=== PATIENT | male | born 1970 | race Caucasian/White ===

== ENCOUNTER 2019-09-24 20:46 | Emergency (ER) | payer OTHER ==
[~2019-09-24] VITALS: Ht 182.8 cm; Wt 100.0 kg
[~2019-09-24 20:46] MED LIST: ARIPIPRAZOLE10 MG PO; COGENTIN1 MG PO; EFFEXOR XR150 M1 PO; LEVOTHYROXIN0.175 MG PO; PROTONIX40 MG PO; REGLAN10 MG PO; SYNTHROID0.15 MG PO; VENLAFAXINE HY150 M2 PO
[2019-09-24] MEDS ORDERED: ATORVASTATIN CA80 M1 PO (20:50)
== END 2019-09-24 21:34 | disposition short-term general hospital (02) ==
LOC: ED 20:46
DX: I21.09 ST elevation (STEMI) myocardial infarction involving other coronary artery of anterior wall (principal); I25.10 Atherosclerotic heart disease of native coronary artery without angina pectoris; F41.9 Anxiety disorder, unspecified; F32.9 Major depressive disorder, single episode, unspecified; F17.200 Nicotine dependence, unspecified, uncomplicated; Z79.899 Other long term (current) drug therapy

== ENCOUNTER → 2019-11-11 | Outpatient (CLI) | payer OTHER ==
[~2019-11-11] MED LIST changes: +ATORVASTATIN CA80 M1 PO
== END ==
LOC: CARD 00:16
DX: I25.10 Atherosclerotic heart disease of native coronary artery without angina pectoris (principal); R73.03 Prediabetes

== ENCOUNTER 2020-02-01 23:28 | Inpatient (IN) | payer OTHER ==
[~2020-02-01] VITALS: Ht 182.9 cm; Wt 94.9 kg
[2020-02-01 23:29] VITALS: BP 115/68
[2020-02-01 23:45] LABS: BASO # 0.1 10*3/uL (0.0-0.1); BASO % 0.7 % (0.0-1.0); EOS # 0.1 10*3/uL (0.0-0.4); EOS % 1.5 % (1.0-4.0); HEMATOCRIT 41.4 % (42.0-52.0); LYMPH # 2.6 10*3/uL (1.3-4.4); LYMPH % 31.5 % (27.0-41.0); MEAN CORPUSCULAR HGB 29.6 pg (27.0-31.0); MEAN CORPUSCULAR HGB CONC 32.9 g/dl (33.0-37.0); MEAN PLATELET VOLUME 10.3 fl (9.6-12.3); MONO # 0.5 10*3/uL (0.1-1.0); MONO % 6.2 % (3.0-9.0); NEUT # 4.9 10*3/uL (2.3-7.9); PLATELET COUNT AUTOMATED 254 10*3/uL (130-400); RED CELL DISTRI WIDTH 12.4 % (0-14.5); WHITE BLOOD COUNT 8.1 10*3/uL (4.8-10.8)
[2020-02-01 23:57] LABS: ACT PARTIAL THROMBO TIME 30.5 SECONDS (20.0-32.1); INTERNATIONAL NORM RATIO 1.2 (2.0-3.5)
[2020-02-02 00:02] LABS: ALBUMIN 3.6 gm/dl (3.1-4.5); ALKALINE PHOSPHATASE 108 U/L (45-117); BUN 14 mg/dl (7-24); CHLORIDE 108 mmol/L (98-107); CREATININE 1.03 mg/dL (0.70-1.30); POTASSIUM 3.2 mmol/L (3.5-5.1); SGOT/AST 12 IU/L (3-35); SGPT/ALT 21 U/L (12-78); SODIUM 139 mmol/L (136-145); TOTAL PROTEIN 6.8 gm/dL (6.4-8.2)
[2020-02-02 00:03] LABS: TROPONIN I 0.019 ng/ml (<0.045)
[2020-02-02 01:58] VITALS: BP 114/84
[2020-02-02 02:41] VITALS: BP 110/85
[2020-02-02 03:54] VITALS: BP 116/76
[2020-02-02 04:20] VITALS: BP 124/87
[2020-02-02 05:55] LABS: ALBUMIN 3.5 gm/dl (3.1-4.5); ALKALINE PHOSPHATASE 100 U/L (45-117); BUN 13 mg/dl (7-24); CHLORIDE 110 mmol/L (98-107); CHOLESTEROL 95 mg/dL (<200); CREATININE 0.98 mg/dL (0.70-1.30); FREE T4 1.33 ng/dl (0.76-1.46); HDL CHOLESTEROL 35 mg/dl (40-60); LDL CHOLESTEROL 46 mg/dL (9-159); POTASSIUM 3.8 mmol/L (3.5-5.1); SGOT/AST 12 IU/L (3-35); SGPT/ALT 20 U/L (12-78); SODIUM 141 mmol/L (136-145); TOTAL PROTEIN 6.5 gm/dL (6.4-8.2); TRIGLYCERIDES 69 mg/dl (<150); VLDL CHOLESTEROL 14 mg/dL (6-40)
[2020-02-02 06:16] LABS: BASO # 0.1 10*3/uL (0.0-0.1); BASO % 0.8 % (0.0-1.0); EOS # 0.1 10*3/uL (0.0-0.4); EOS % 1.5 % (1.0-4.0); HEMATOCRIT 41.4 % (42.0-52.0); LYMPH # 2.7 10*3/uL (1.3-4.4); LYMPH % 37.9 % (27.0-41.0); MEAN CORPUSCULAR HGB 29.3 pg (27.0-31.0); MEAN CORPUSCULAR HGB CONC 32.6 g/dl (33.0-37.0); MEAN PLATELET VOLUME 10.7 fl (9.6-12.3); MONO # 0.5 10*3/uL (0.1-1.0); MONO % 7.6 % (3.0-9.0); NEUT # 3.7 10*3/uL (2.3-7.9); NEUT % 52.1 % (47.0-73.0); PLATELET COUNT AUTOMATED 255 10*3/uL (130-400); RED CELL DISTRI WIDTH 12.4 % (0-14.5); WHITE BLOOD COUNT 7.1 10*3/uL (4.8-10.8)
[2020-02-02 06:59] LABS: VITAMIN D, 25-HYDROXY 47.8 ng/mL (30-100)
[2020-02-02] MEDS ORDERED: ELIQUIS5 M1 PO (09:07)
[2020-02-02] MEDS ORDERED: CARVEDILOL3.125 MG PO (09:07)
[2020-02-02] MEDS ORDERED: PRASUGREL HCL10 MG PO (09:08)
[2020-02-02 12:00] VITALS: BP 121/81
[2020-02-02 16:00] VITALS: BP 119/80
== END 2020-02-02 16:06 | disposition home or self-care (01) | DRG 190 ==
LOC: ED 23:28 → EDHOLD 02-02 02:49 → 4E 02-02 04:06
PROVIDERS: Emergency Medicine; Internal Medicine; ADMIT Internal Medicine
DX: I21.19 ST elevation (STEMI) myocardial infarction involving other coronary artery of inferior wall (principal); I25.10 Atherosclerotic heart disease of native coronary artery without angina pectoris; F32.9 Major depressive disorder, single episode, unspecified; E89.0 Postprocedural hypothyroidism; R55 Syncope and collapse; I25.2 Old myocardial infarction; Z95.5 Presence of coronary angioplasty implant and graft; Z79.01 Long term (current) use of anticoagulants; Z79.899 Other long term (current) drug therapy

== ENCOUNTER 2020-02-21 00:20 | Inpatient (IN) | payer OTHER ==
[2020-02-21] VITALS (9 sets, daily range): BP systolic 101–134; BP diastolic 54–87
[~2020-02-21] VITALS: Ht 182.9 cm; Wt 93.5 kg
[~2020-02-21 00:20] MED LIST changes: +CARVEDILOL3.125 MG PO; +ELIQUIS5 M1 PO; +PRASUGREL HCL10 MG PO
[2020-02-21 00:36] LABS: BASO # 0.1 10*3/uL (0.0-0.1); BASO % 0.8 % (0.0-1.0); EOS # 0.1 10*3/uL (0.0-0.4); EOS % 1.5 % (1.0-4.0); HEMATOCRIT 44.1 % (42.0-52.0); LYMPH # 2.4 10*3/uL (1.3-4.4); LYMPH % 26.7 % (27.0-41.0); MEAN CELL VOLUME 90.7 fl (80.0-94.0); MEAN CORPUSCULAR HGB 29.4 pg (27.0-31.0); MEAN CORPUSCULAR HGB CONC 32.4 g/dl (33.0-37.0); MEAN PLATELET VOLUME 9.7 fl (9.6-12.3); MONO # 0.6 10*3/uL (0.1-1.0); MONO % 6.5 % (3.0-9.0); NEUT # 5.7 10*3/uL (2.3-7.9); NEUT % 64.3 % (47.0-73.0); PLATELET COUNT AUTOMATED 289 10*3/uL (130-400); RED BLOOD COUNT 4.86 10*6/uL (4.50-5.90); RED CELL DISTRI WIDTH 12.6 % (0-14.5); WHITE BLOOD COUNT 8.9 10*3/uL (4.8-10.8)
[2020-02-21 00:50] LABS: ACT PARTIAL THROMBO TIME 31.3 SECONDS (20.0-32.1); INTERNATIONAL NORM RATIO 1.1 (2.0-3.5)
[2020-02-21 00:54] LABS: ALBUMIN 3.8 gm/dl (3.1-4.5); ALKALINE PHOSPHATASE 111 U/L (45-117); BUN 18 mg/dl (7-24); CHLORIDE 110 mmol/L (98-107); POTASSIUM 3.7 mmol/L (3.5-5.1); SGOT/AST 14 IU/L (3-35); SGPT/ALT 23 U/L (12-78); SODIUM 140 mmol/L (136-145); TOTAL PROTEIN 7.2 gm/dL (6.4-8.2); TROPONIN I 0.025 ng/ml (<0.045)
--- NOTE | 2020-02-21 02:25 | NUR ---
A 49, admitted to 5E, under the services of ENIO Hanley MD with a diagnosis of CHEST PAIN. Chief complaint is SOB, "HOT SWEATS". Patient arrived via stretcher from ER. Monitor applied. Initial assessment completed. Vital signs taken and recorded. ENIO HANLEY MD notified of admission to the unit. Orders received. See assessment for past medical history, medications and allergies. Patient and/or family oriented to unit. [address] visitation policy reviewed. Clothing/patient valuable form completed. NIXON CHAO
--- NOTE | 2020-02-21 03:10 | NUR ---
CALLED FOR NEW ADMISSION ORDERS.
[2020-02-21] MEDS ORDERED: LEVOTHYROXINE175 MCG PO (03:16)
--- NOTE | 2020-02-21 03:24 | NUR ---
ANSWERING SERVICE NOTIFIED OF NEW CONSULT.
[2020-02-21 06:52] LABS: BUN 19 mg/dl (7-24); CHLORIDE 112 mmol/L (98-107); CREATININE 0.79 mg/dL (0.70-1.30); POTASSIUM 3.9 mmol/L (3.5-5.1); SODIUM 141 mmol/L (136-145)
--- NOTE | 2020-02-21 08:26 | NUR ---
PHYSICAL THERAPY Screen received, pt admitted from home with chest pain w history of [place]. Please consult PT if pts functional status declines from baseline. Thank you. Colt Lorenzo SPT Gina Ray PT
--- NOTE | 2020-02-21 12:00 | NUR ---
NOTIFIED [facility] OF NEED FOR LIFE [facility]ST FOR PATIENT [phone]
--- NOTE | 2020-02-21 16:03 | NUR ---
Nursing screen received and chart reviewed. Patient admitted for chest pain with a history of IN. If patient has a decline in ADLs, transfers, or functional mobility, please send OT orders. Thank you. Batool Moyer, OTR/L
--- NOTE | 2020-02-21 17:46 | NUR ---
NURSE TO NURSE GIVEN TO [facility], PT NEEDS TO BE AT HOSPITAL BY 0730 FOR CATH WITH AT 0900.
--- NOTE | 2020-02-21 18:40 | NUR ---
LIFE VEST STILL NOT AVAILABLE TRIED TO CALL [facility] AGAIN WITH NO ANSWER
--- NOTE | 2020-02-21 20:00 | NUR ---
RESTING IN BED; VOICES NO C/O AT THIS TIME. CALL LIGHT WITHIN REACH.
--- NOTE | 2020-02-21 21:45 | NUR ---
CALLED [facility] AT [facility] AT [phone]. NO ANSWER.
[2020-02-22] VITALS: BP 103/79
--- NOTE | 2020-02-22 04:00 | NUR ---
RESTING IN BED WITH EYES CLOSED; CALL LIGHT WITHIN REACH.
--- NOTE | 2020-02-22 05:00 | NUR ---
BATHED WITH ASSISTANCE OF
--- NOTE | 2020-02-22 05:30 | NUR ---
EXPLAINED TO PATIENT THAT I COULD NOT GET HIS MEDICATIONS FOR HIM DUE TO PHARMACY BEING CLOSED. PT. VERBALIZED UNDERSTANDING.
--- NOTE | 2020-02-22 05:33 | NUR ---
[facility] [employer] NEVER RETURNED ANY OF OUR PHONE CALLS.
--- NOTE | 2020-02-22 06:06 | NUR ---
LEFT VIA [facility]. STABLE.
--- NOTE | 2020-02-22 06:26 | NUR ---
ATTEMPTED TO CALL [facility] [employer] [facility]; NO ANSWER.
--- NOTE | 2020-02-22 06:30 | NUR ---
CALLED [facility] AT AND SPOKE TO ANABELA PERTAINING TO PATIENT LEAVING TO GO TO [facility] THIS MORNING FOR A HEART CATHERIZATION. ANABELA STATED THAT THEY RECEIVED THE ORDER FOR THE LIFE VEST. LEFT OUR PHONE NUMBER IN CASE ANYONE FROM [facility] NEEDS TO CALL HERE FOR MORE INFORMATION & GAVE HER [facility]S MAIN # AND # FOR INSIDE SALES ADVISOR.
[2020-02-22 07:19] LABS: ALBUMIN 3.6 gm/dl (3.1-4.5); ALKALINE PHOSPHATASE 93 U/L (45-117); BUN 17 mg/dl (7-24); CHLORIDE 109 mmol/L (98-107); CREATININE 0.88 mg/dL (0.70-1.30); POTASSIUM 3.5 mmol/L (3.5-5.1); SGOT/AST 12 IU/L (3-35); SGPT/ALT 21 U/L (12-78); SODIUM 137 mmol/L (136-145); TOTAL PROTEIN 6.8 gm/dL (6.4-8.2)
[2020-02-22] MEDS ORDERED: COREG6.25 MG PO (11:40)
[2020-02-22] MEDS ORDERED: LISINOPRIL2.5 MG PO (11:40)
== END 2020-02-22 06:30 | disposition other institution (70) | DRG 198 ==
LOC: ED 00:20 → 5E 01:27 → EDHOLD 01:27 → 5E 01:43
PROVIDERS: Emergency Medicine; Internal Medicine; ADMIT Internal Medicine
DX: I25.9 Chronic ischemic heart disease, unspecified (principal); I25.10 Atherosclerotic heart disease of native coronary artery without angina pectoris; R73.9 Hyperglycemia, unspecified; E87.8 Other disorders of electrolyte and fluid balance, not elsewhere classified; F12.10 Cannabis abuse, uncomplicated; E89.0 Postprocedural hypothyroidism; R06.02 Shortness of breath; F32.9 Major depressive disorder, single episode, unspecified; E78.5 Hyperlipidemia, unspecified; I44.4 Left anterior fascicular block; I34.0 Nonrheumatic mitral (valve) insufficiency; I25.5 Ischemic cardiomyopathy; R61 Generalized hyperhidrosis; F17.219 Nicotine dependence, cigarettes, with unspecified nicotine-induced disorders; I25.2 Old myocardial infarction; Z95.5 Presence of coronary angioplasty implant and graft; Z82.49 Family history of ischemic heart disease and other diseases of the circulatory system; Z79.02 Long term (current) use of antithrombotics/antiplatelets

== ENCOUNTER → 2020-04-11 | Outpatient (CLI) | payer OTHER ==
[~2020-04-11] MED LIST changes: +COREG6.25 MG PO; +LEVOTHYROXINE175 MCG PO; +LISINOPRIL2.5 MG PO
== END | disposition home or self-care (01) ==
LOC: CARD 14:48
PROVIDERS: ATTEND Internal Medicine Cardiovascular Disease
DX: I25.5 Ischemic cardiomyopathy (principal)

== ENCOUNTER 2021-08-22 18:48 | Emergency (ER) | payer OTHER ==
[~2021-08-22] VITALS: Wt 108.9 kg
[2021-08-22 20:11] LABS: BASO # 0.1 10*3/uL (0.0-0.1); BASO % 0.5 % (0.0-1.0); EOS # 0.2 10*3/uL (0.0-0.4); EOS % 1.2 % (1.0-4.0); LYMPH # 1.5 10*3/uL (1.3-4.4); MEAN CELL VOLUME 94.6 fl (80.0-94.0); MEAN CORPUSCULAR HGB 31.2 pg (27.0-31.0); MEAN PLATELET VOLUME 9.8 fl (9.6-12.3); MONO # 0.8 10*3/uL (0.1-1.0); MONO % 5.4 % (3.0-9.0); NEUT # 11.5 10*3/uL (2.3-7.9); NEUT % 81.5 % (47.0-73.0); PLATELET COUNT AUTOMATED 282 10*3/uL (130-400); RED BLOOD COUNT 4.23 10*6/uL (4.50-5.90); RED CELL DISTRI WIDTH 11.9 % (0-14.5)
[2021-08-22 20:30] LABS: ALBUMIN 3.2 gm/dl (3.1-4.5); ALKALINE PHOSPHATASE 115 U/L (45-117); BUN 12 mg/dl (7-24); CHLORIDE 105 mmol/L (98-107); CREATININE 0.91 mg/dL (0.70-1.30); POTASSIUM 4.2 mmol/L (3.5-5.1); SGOT/AST 13 IU/L (3-35); SGPT/ALT 22 U/L (12-78); SODIUM 140 mmol/L (136-145); TOTAL PROTEIN 7.2 gm/dL (6.4-8.2)
[2021-08-22] MEDS ORDERED: BENZONATATE100 M1 PO (22:15)
== END 2021-08-22 22:22 | disposition home or self-care (01) ==
LOC: ED 18:48
PROVIDERS: Emergency Medicine
DX: R05.9 Cough, unspecified (principal); I10 Essential (primary) hypertension; I25.10 Atherosclerotic heart disease of native coronary artery without angina pectoris; E78.5 Hyperlipidemia, unspecified; E03.9 Hypothyroidism, unspecified; Z79.899 Other long term (current) drug therapy; Z98.890 Other specified postprocedural states; Z87.891 Personal history of nicotine dependence

== ENCOUNTER 2022-01-03 00:05 | Emergency (ER) | payer OTHER ==
[~2022-01-03 00:05] MED LIST changes: +BENZONATATE100 M1 PO; +DOXYCYCLINE HY100 M3 PO; +LASIX20 MG PO; +LEVOTHYROXINE200 MC2 PO; +PREDNISONE10 MG PO; +VITAMIN D3125 MC1 PO
[2022-01-03 00:24] LABS: BASO % 0.3 % (0.0-1.0); EOS # 0.1 10*3/uL (0.0-0.4); EOS % 0.8 % (1.0-4.0); HEMATOCRIT 45.8 % (42.0-52.0); LYMPH # 3.9 10*3/uL (1.3-4.4); MEAN CELL VOLUME 94.6 fl (80.0-94.0); MEAN CORPUSCULAR HGB 31.4 pg (27.0-31.0); MEAN CORPUSCULAR HGB CONC 33.2 g/dl (33.0-37.0); MONO # 1.5 10*3/uL (0.1-1.0); MONO % 9.3 % (3.0-9.0); NEUT # 10.1 10*3/uL (2.3-7.9); NEUT % 64.3 % (47.0-73.0); PLATELET COUNT AUTOMATED 307 10*3/uL (130-400); RED BLOOD COUNT 4.84 10*6/uL (4.50-5.90); RED CELL DISTRI WIDTH 12.8 % (0-14.5); WHITE BLOOD COUNT 15.7 10*3/uL (4.8-10.8)
[2022-01-03 00:35] LABS: ACT PARTIAL THROMBO TIME 25.4 SECONDS (20.0-32.1)
[2022-01-03 00:40] LABS: ALKALINE PHOSPHATASE 106 U/L (45-117); BUN 17 mg/dl (7-24); CHLORIDE 104 mmol/L (98-107); CREATININE 0.92 mg/dL (0.70-1.30); POTASSIUM 4.1 mmol/L (3.5-5.1); SGOT/AST 17 IU/L (3-35); SGPT/ALT 37 U/L (12-78); SODIUM 143 mmol/L (136-145); TOTAL PROTEIN 6.9 gm/dL (6.4-8.2)
== END 2022-01-03 02:23 | disposition left against medical advice (07) ==
LOC: ED 00:05
PROVIDERS: Emergency Medicine
DX: J44.1 Chronic obstructive pulmonary disease with (acute) exacerbation (principal); I25.10 Atherosclerotic heart disease of native coronary artery without angina pectoris; J44.9 Chronic obstructive pulmonary disease, unspecified; E78.5 Hyperlipidemia, unspecified; I11.0 Hypertensive heart disease with heart failure; I50.9 Heart failure, unspecified; E03.9 Hypothyroidism, unspecified; Z79.899 Other long term (current) drug therapy; Z90.89 Acquired absence of other organs

== ENCOUNTER 2022-01-09 22:05 | Emergency (ER) | payer OTHER ==
[~2022-01-09] VITALS: Ht 182.8 cm; Wt 104.3 kg
== END 2022-01-09 23:29 | disposition home or self-care (01) ==
LOC: ED 22:05
DX: R60.0 Localized edema (principal); F12.10 Cannabis abuse, uncomplicated; Z90.89 Acquired absence of other organs; Z79.899 Other long term (current) drug therapy

== ENCOUNTER 2022-10-18 16:21 | Inpatient (IN) | payer OTHER ==
[~2022-10-18] VITALS: Ht 182.8 cm; Wt 119.8 kg
[2022-10-18 16:32] VITALS: BP 114/69
[2022-10-18 16:57] LABS: BASO # 0.1 10*3/uL (0.0-0.1); BASO % 0.6 % (0.0-1.0); EOS # 0.1 10*3/uL (0.0-0.4); EOS % 0.8 % (1.0-4.0); HEMATOCRIT 45.2 % (42.0-52.0); LYMPH # 1.6 10*3/uL (1.3-4.4); LYMPH % 15.2 % (27.0-41.0); MEAN CORPUSCULAR HGB 31.4 pg (27.0-31.0); MEAN CORPUSCULAR HGB CONC 32.7 g/dl (33.0-37.0); MEAN PLATELET VOLUME 9.4 fl (9.6-12.3); MONO # 0.5 10*3/uL (0.1-1.0); MONO % 5.3 % (3.0-9.0); NEUT # 7.9 10*3/uL (2.3-7.9); NEUT % 77.8 % (47.0-73.0); PLATELET COUNT AUTOMATED 289 10*3/uL (130-400); RED BLOOD COUNT 4.71 10*6/uL (4.50-5.90); RED CELL DISTRI WIDTH 12.9 % (0-14.5); WHITE BLOOD COUNT 10.2 10*3/uL (4.8-10.8)
[2022-10-18 17:13] LABS: ACT PARTIAL THROMBO TIME 33.6 SECONDS (20.0-32.1); ALKALINE PHOSPHATASE 116 U/L (46-116); BUN 8 mg/dl (9-23); CHLORIDE 100 mmol/L (98-107); INTERNATIONAL NORM RATIO 1.1 (2.0-3.5); POTASSIUM 3.9 mmol/L (3.4-5.1); SGPT/ALT 13 U/L (10-49)
[2022-10-18 19:34] VITALS: BP 112/70
[2022-10-18] MEDS ORDERED: ELIQUIS5 M1 PO (20:57)
[2022-10-18] MEDS ORDERED: LEVOTHYROXINE175 MCG PO (20:58)
[2022-10-18] MEDS ORDERED: VITAMIN D3125 MCG PO (20:58)
[2022-10-18] MEDS ORDERED: FUROSEMIDE20 M1 PO (20:58)
[2022-10-18] MEDS ORDERED: LISINOPRIL2.5 MG PO (20:58)
[2022-10-18] MEDS ORDERED: LIPITOR80 MG PO (21:14)
[2022-10-18 23:30] VITALS: BP 110/68
[2022-10-19 08:00] VITALS: BP 107/56
[2022-10-19] MEDS ORDERED: VITAMIN D3125 MCG PO (11:59)
[2022-10-19 12:00] VITALS: BP 103/60
[2022-10-19] MEDS ORDERED: DOXYCYCLINE HY100 M3 PO (15:46)
[2022-10-19] MEDS ORDERED: PREDNISONE10 MG PO (15:46)
[2022-10-19 16:00] VITALS: BP 114/58
== END 2022-10-19 17:20 | disposition home or self-care (01) | DRG 140 ==
LOC: ED 16:21 → EDHOLD 17:45 → 5E 17:45
PROVIDERS: Emergency Medicine; ADMIT Internal Medicine; ATTEND Internal Medicine
DX: J44.1 Chronic obstructive pulmonary disease with (acute) exacerbation (principal); I25.10 Atherosclerotic heart disease of native coronary artery without angina pectoris; E78.5 Hyperlipidemia, unspecified; I50.9 Heart failure, unspecified; I11.0 Hypertensive heart disease with heart failure; E89.0 Postprocedural hypothyroidism; F17.210 Nicotine dependence, cigarettes, uncomplicated; Z79.899 Other long term (current) drug therapy; Z95.810 Presence of automatic (implantable) cardiac defibrillator

== ENCOUNTER 2022-11-01 22:46 | Emergency (ER) | payer OTHER ==
[~2022-11-01] VITALS: Ht 182.8 cm
[~2022-11-01 22:46] MED LIST changes: +FUROSEMIDE20 M1 PO; +LIPITOR80 MG PO; +VITAMIN D3125 MCG PO
[2022-11-01] MEDS ORDERED: VIBRA-TAB100 MG PO (22:52)
[2022-11-01] MEDS ORDERED: PROVENTIL HFA6.7 GM PO (22:52)
[2022-11-01] MEDS ORDERED: PREDNISONE10 MG PO (22:52)
== END 2022-11-01 23:00 | disposition home or self-care (01) ==
LOC: ED 22:46
DX: J44.1 Chronic obstructive pulmonary disease with (acute) exacerbation (principal); F41.9 Anxiety disorder, unspecified; F32.A Depression, unspecified; I25.10 Atherosclerotic heart disease of native coronary artery without angina pectoris; Z98.890 Other specified postprocedural states; F12.10 Cannabis abuse, uncomplicated; F17.200 Nicotine dependence, unspecified, uncomplicated

== ENCOUNTER → 2023-02-03 | Outpatient (CLI) | payer OTHER ==
[~2023-02-03] MED LIST changes: +PROVENTIL HFA6.7 GM PO; +VIBRA-TAB100 MG PO
== END | disposition home or self-care (01) ==
LOC: RAD 11:08
PROVIDERS: ATTEND Nurse Practitioner Family
DX: J44.1 Chronic obstructive pulmonary disease with (acute) exacerbation (principal); Z72.0 Tobacco use

== ENCOUNTER 2023-10-12 11:10 | Emergency (ER) | payer OTHER ==
[~2023-10-12] VITALS: Ht 182.8 cm; Wt 104.3 kg
[2023-10-12] MEDS ORDERED: methylPREDNISolone sod succ 125 MG VIAL IV ONE (11:15)
[2023-10-12] MEDS ORDERED: Albuterol Sulf/Ipratropium 3 ML VIAL NEB ONE (11:15)
[2023-10-12 11:32] LABS: BASO # 0.1 10*3/uL (0.0-0.1); BASO % 0.7 % (0.0-1.0); EOS # 0.1 10*3/uL (0.0-0.4); EOS % 1.4 % (1.0-4.0); HEMATOCRIT 41.9 % (42.0-52.0); LYMPH % 21.9 % (27.0-41.0); MEAN CELL VOLUME 95.4 fl (80.0-94.0); MEAN CORPUSCULAR HGB 31.4 pg (27.0-31.0); MEAN CORPUSCULAR HGB CONC 32.9 g/dl (33.0-37.0); MEAN PLATELET VOLUME 9.3 fl (9.6-12.3); MONO # 0.5 10*3/uL (0.1-1.0); MONO % 5.9 % (3.0-9.0); NEUT # 6.4 10*3/uL (2.3-7.9); NEUT % 69.9 % (47.0-73.0); PLATELET COUNT AUTOMATED 247 10*3/uL (130-400); RED BLOOD COUNT 4.39 10*6/uL (4.50-5.90); RED CELL DISTRI WIDTH 11.9 % (0-14.5); WHITE BLOOD COUNT 9.1 10*3/uL (4.8-10.8)
[2023-10-12 11:54] LABS: BUN 7 mg/dl (9-23); CHLORIDE 102 mmol/L (98-107); POTASSIUM 3.7 mmol/L (3.4-5.1)
[2023-10-12] MEDS ORDERED: PREDNISONE20 M1 PO (12:46)
[2023-10-12] MEDS ORDERED: AVPAK AZITHROM250 M1 PO (12:46)
[2023-10-12] MEDS ORDERED: AZITHROMYCIN 250 MG TAB PO ONE (12:50)
== END 2023-10-12 12:51 | disposition home or self-care (01) ==
LOC: ED 11:10
PROVIDERS: Nurse Practitioner Family
DX: J44.1 Chronic obstructive pulmonary disease with (acute) exacerbation (principal); I11.0 Hypertensive heart disease with heart failure; I25.10 Atherosclerotic heart disease of native coronary artery without angina pectoris; I50.9 Heart failure, unspecified; F32.A Depression, unspecified; E78.5 Hyperlipidemia, unspecified; E03.9 Hypothyroidism, unspecified; F41.9 Anxiety disorder, unspecified; Z98.890 Other specified postprocedural states; Z95.5 Presence of coronary angioplasty implant and graft; F12.10 Cannabis abuse, uncomplicated; F17.200 Nicotine dependence, unspecified, uncomplicated

== ENCOUNTER 2023-11-15 23:25 | Emergency (ER) | payer OTHER ==
[~2023-11-15] VITALS: Ht 182.8 cm; Wt 111.6 kg
[~2023-11-15 23:25] MED LIST changes: +AVPAK AZITHROM250 M1 PO; +PREDNISONE20 M1 PO
[2023-11-15 23:50] LABS: BASO # 0.1 10*3/uL (0.0-0.1); BASO % 0.6 % (0.0-1.0); EOS # 0.2 10*3/uL (0.0-0.4); EOS % 1.7 % (1.0-4.0); HEMATOCRIT 43.2 % (42.0-52.0); LYMPH # 2.6 10*3/uL (1.3-4.4); MEAN CELL VOLUME 96.2 fl (80.0-94.0); MEAN CORPUSCULAR HGB 31.2 pg (27.0-31.0); MEAN CORPUSCULAR HGB CONC 32.4 g/dl (33.0-37.0); MEAN PLATELET VOLUME 9.9 fl (9.6-12.3); MONO % 7.7 % (3.0-9.0); NEUT # 8.9 10*3/uL (2.3-7.9); NEUT % 69.7 % (47.0-73.0); PLATELET COUNT AUTOMATED 223 10*3/uL (130-400); RED BLOOD COUNT 4.49 10*6/uL (4.50-5.90); RED CELL DISTRI WIDTH 12.7 % (0-14.5); WHITE BLOOD COUNT 12.8 10*3/uL (4.8-10.8)
[2023-11-15] MEDS ORDERED: methylPREDNISolone sod succ 125 MG VIAL IV ONE (23:55)
[2023-11-16 00:11] LABS: ALKALINE PHOSPHATASE 96 U/L (46-116); BUN 11 mg/dl (9-23); CHLORIDE 107 mmol/L (98-107); POTASSIUM 3.7 mmol/L (3.4-5.1); SGPT/ALT 14 U/L (5-49); TOTAL PROTEIN 6.8 gm/dL (6.0-8.0)
[2023-11-16] MEDS ORDERED: PREDNISONE20 M1 PO (03:36)
[2023-11-16] MEDS ORDERED: ZITHROMAX250 MG PO (03:36)
[2023-11-16] MEDS ORDERED: ALBUTEROL 8 GM INHALER INH ONE (03:55)
[2023-11-16] MEDS ORDERED: AZITHROMYCIN 250 MG TAB PO ONE (03:55)
== END 2023-11-16 04:14 | disposition home or self-care (01) ==
LOC: ED 23:25
PROVIDERS: Emergency Medicine
DX: J44.1 Chronic obstructive pulmonary disease with (acute) exacerbation (principal); I50.9 Heart failure, unspecified; I11.0 Hypertensive heart disease with heart failure; E78.5 Hyperlipidemia, unspecified; E03.9 Hypothyroidism, unspecified; F41.9 Anxiety disorder, unspecified; F32.A Depression, unspecified; I25.10 Atherosclerotic heart disease of native coronary artery without angina pectoris; Z95.5 Presence of coronary angioplasty implant and graft; Z98.890 Other specified postprocedural states; F17.200 Nicotine dependence, unspecified, uncomplicated; F12.10 Cannabis abuse, uncomplicated

== ENCOUNTER 2023-11-30 03:27 | Emergency (ER) | payer OTHER ==
[~2023-11-30] VITALS: Ht 182.8 cm; Wt 107.6 kg
[~2023-11-30 03:27] MED LIST changes: +ZITHROMAX250 MG PO
[2023-11-30] MEDS ORDERED: methylPREDNISolone sod succ 125 MG VIAL IV ONE (04:00)
[2023-11-30] MEDS ORDERED: Albuterol Sulf/Ipratropium 3 ML VIAL NEB ONE (04:00)
[2023-11-30 04:10] LABS: BASO # 0.1 10*3/uL (0.0-0.1); BASO % 0.6 % (0.0-1.0); EOS # 0.1 10*3/uL (0.0-0.4); EOS % 0.9 % (1.0-4.0); HEMATOCRIT 42.1 % (42.0-52.0); LYMPH # 2.6 10*3/uL (1.3-4.4); LYMPH % 20.5 % (27.0-41.0); MEAN CELL VOLUME 96.8 fl (80.0-94.0); MEAN CORPUSCULAR HGB 31.7 pg (27.0-31.0); MEAN CORPUSCULAR HGB CONC 32.8 g/dl (33.0-37.0); MEAN PLATELET VOLUME 9.4 fl (9.6-12.3); MONO # 0.8 10*3/uL (0.1-1.0); MONO % 6.1 % (3.0-9.0); NEUT # 9.2 10*3/uL (2.3-7.9); NEUT % 71.7 % (47.0-73.0); PLATELET COUNT AUTOMATED 245 10*3/uL (130-400); RED BLOOD COUNT 4.35 10*6/uL (4.50-5.90); RED CELL DISTRI WIDTH 13.1 % (0-14.5); WHITE BLOOD COUNT 12.9 10*3/uL (4.8-10.8)
[2023-11-30 04:29] LABS: BUN 8 mg/dl (9-23); CHLORIDE 103 mmol/L (98-107); POTASSIUM 3.9 mmol/L (3.4-5.1)
[2023-11-30] MEDS ORDERED: ALBUTEROL 8 GM INHALER INH ONE (06:15)
== END 2023-11-30 06:30 | disposition home or self-care (01) ==
LOC: ED 03:27
PROVIDERS: Emergency Medicine
DX: J44.1 Chronic obstructive pulmonary disease with (acute) exacerbation (principal); I25.10 Atherosclerotic heart disease of native coronary artery without angina pectoris; I50.9 Heart failure, unspecified; I11.0 Hypertensive heart disease with heart failure; E78.5 Hyperlipidemia, unspecified; E03.9 Hypothyroidism, unspecified; F41.9 Anxiety disorder, unspecified; F32.A Depression, unspecified; Z98.890 Other specified postprocedural states; Z95.5 Presence of coronary angioplasty implant and graft; F17.200 Nicotine dependence, unspecified, uncomplicated; F12.10 Cannabis abuse, uncomplicated

== ENCOUNTER 2025-01-13 18:52 | Emergency (ER) | payer OTHER ==
[~2025-01-13] VITALS: Ht 182.8 cm; Wt 108.9 kg
[2025-01-13 19:32] LABS: BILIRUBIN 1+ (Negative); BLOOD 2+ (Negative); CLARITY Turbid (Clear); COLOR Red (Yellow); GLUCOSE Negative (Negative); KETONE Negative (Negative); LEUKO ESTERASE 2+ (Negative); NITRITE Positive (Negative); PH 5.5 (4.5-8.0); SPECIFIC GRAVITY 1.025 (1.001-1.030)
[2025-01-13] MEDS ORDERED: IOHEXOL 300 MG/ML 100 ML VIAL IV ONE (19:35)
[2025-01-13 19:37] LABS: BASO # 0.1 10*3/uL (0.0-0.1); BASO % 0.6 % (0.0-1.0); EOS # 0.1 10*3/uL (0.0-0.4); EOS % 0.6 % (1.0-4.0); HEMATOCRIT 45.9 % (42.0-52.0); MEAN CORPUSCULAR HGB 31.9 pg (27.0-31.0); MEAN CORPUSCULAR HGB CONC 33.6 g/dl (33.0-37.0); MEAN PLATELET VOLUME 9.6 fl (9.6-12.3); MONO # 0.7 10*3/uL (0.1-1.0); MONO % 4.6 % (3.0-9.0); NEUT # 11.8 10*3/uL (2.3-7.9); NEUT % 82.2 % (47.0-73.0); PLATELET COUNT AUTOMATED 280 10*3/uL (130-400); RED BLOOD COUNT 4.83 10*6/uL (4.50-5.90); RED CELL DISTRI WIDTH 12.7 % (0-14.5); WHITE BLOOD COUNT 14.4 10*3/uL (4.8-10.8)
[2025-01-13 19:51] LABS: BACTERIA 3+; RBC TNTC rbc/hpf (0-2); WBC 21-30 wbc/hpf (0-5)
[2025-01-13 20:00] LABS: ALKALINE PHOSPHATASE 88 U/L (46-116); BUN 13 mg/dl (9-23); CHLORIDE 108 mmol/L (98-107); POTASSIUM 3.6 mmol/L (3.4-5.1); SGPT/ALT 10 U/L (5-49); TOTAL PROTEIN 7.4 gm/dL (6.0-8.0)
[2025-01-13] MEDS ORDERED: Doxycycline Hyclate 100 MG CAPSULE PO ONE (22:10)
[2025-01-13] MEDS ORDERED: VIBRAMYCIN100 MG PO (22:29)
== END 2025-01-13 22:32 | disposition home or self-care (01) ==
LOC: ED 18:52
PROVIDERS: Nurse Practitioner Family
DX: N39.0 Urinary tract infection, site not specified (principal); R06.02 Shortness of breath; Z79.899 Other long term (current) drug therapy; Z95.810 Presence of automatic (implantable) cardiac defibrillator; Z90.89 Acquired absence of other organs; Z87.891 Personal history of nicotine dependence

== ENCOUNTER 2025-03-09 08:09 | Emergency (ER) | payer OTHER ==
[~2025-03-09] VITALS: Wt 108.9 kg
[~2025-03-09 08:09] MED LIST changes: +VIBRAMYCIN100 MG PO
[2025-03-09] MEDS ORDERED: AZITHROMYCIN 250 MG TAB PO ONE (08:15)
[2025-03-09] MEDS ORDERED: MAGNESIUM SULFATE 50 ML IV ONE (08:15)
[2025-03-09 08:37] LABS: BASO # 0.1 10*3/uL (0.0-0.1); BASO % 0.7 % (0.0-1.0); EOS # 0.2 10*3/uL (0.0-0.4); EOS % 2.0 % (1.0-4.0); MEAN CELL VOLUME 98.4 fl (80.0-94.0); MEAN CORPUSCULAR HGB 31.8 pg (27.0-31.0); MEAN PLATELET VOLUME 9.4 fl (9.6-12.3); MONO # 0.6 10*3/uL (0.1-1.0); MONO % 6.7 % (3.0-9.0); NEUT # 5.9 10*3/uL (2.3-7.9); NEUT % 69.6 % (47.0-73.0); NUCLEATED RED BLOOD CELL 0.0 % (0.0-0.0); NUCLEATED RED BLOOD CELL 0.0 10*3/uL (0.0-0.0); PLATELET COUNT AUTOMATED 290 10*3/uL (130-400); RED CELL DISTRI WIDTH 12.6 % (0-14.5)
[2025-03-09 08:58] LABS: BUN 10 mg/dl (9-23)
[2025-03-09] MEDS ORDERED: PREDNISONE20 M1 PO (09:10)
== END 2025-03-09 09:14 | disposition home or self-care (01) ==
LOC: ED 08:09
PROVIDERS: Emergency Medicine
DX: J44.1 Chronic obstructive pulmonary disease with (acute) exacerbation (principal); I11.0 Hypertensive heart disease with heart failure; I50.9 Heart failure, unspecified; E78.5 Hyperlipidemia, unspecified; F17.290 Nicotine dependence, other tobacco product, uncomplicated; Z79.899 Other long term (current) drug therapy; Z90.89 Acquired absence of other organs

== ENCOUNTER 2025-05-26 05:43 | Emergency (ER) | payer OTHER ==
[~2025-05-26] VITALS: Ht 167.6 cm; Wt 108.9 kg
[~2025-05-26 05:43] MED LIST changes: +CARVEDILOL6.25 MG PO; +MEDROL DOSEPAK4 MG PO
[2025-05-26] MEDS ORDERED: SODIUM CHLORIDE 0.9% 50 ML IV ONE (05:45)
[2025-05-26] MEDS ORDERED: ZITHROMAX250 MG PO (06:09)
[2025-05-26] MEDS ORDERED: PREDNISONE20 M1 PO (06:09)
[2025-05-26] MEDS ORDERED: Water, Sterile 10 ML VIAL ONE (06:40)
== END 2025-05-26 06:30 | disposition home or self-care (01) ==
LOC: ED 05:43
DX: J44.1 Chronic obstructive pulmonary disease with (acute) exacerbation (principal); F17.200 Nicotine dependence, unspecified, uncomplicated; Z79.899 Other long term (current) drug therapy; Z98.890 Other specified postprocedural states

== ENCOUNTER 2025-07-12 02:26 | Emergency (ER) | payer OTHER ==
[~2025-07-12] VITALS: Ht 177.8 cm; Wt 122.5 kg
[2025-07-12] MEDS ORDERED: Albuterol Sulf/Ipratropium 3 ML VIAL NEB ONE (02:30)
== END 2025-07-12 04:31 | disposition home or self-care (01) ==
LOC: ED 02:26
DX: J44.1 Chronic obstructive pulmonary disease with (acute) exacerbation (principal); F41.9 Anxiety disorder, unspecified; F32.A Depression, unspecified; I25.10 Atherosclerotic heart disease of native coronary artery without angina pectoris; F17.210 Nicotine dependence, cigarettes, uncomplicated